=== PATIENT | female | born 1965 | race African-American/Black ===

== ENCOUNTER 2017-07-16 12:47 | Emergency (ER) | payer BC, OTHER ==
--- NOTE | 2017-07-16 14:57 | RAD ---
TWO VIEW CHEST: HISTORY: Chest pain, cough. COMPARISON: Comparison is made to a portable film of May 2015. FINDINGS: Heart size is mildly prominent but stable from prior exam. Stranding in the peripheral left lung als o to be a stable finding. There is no evidence of infiltrate or acute abnormality. IMPRESSION: No acute abnormality. POS: [facility]
== END 2017-07-16 14:13 | disposition home or self-care (01) ==
LOC: ERS 12:47
DX: J06.9 Acute upper respiratory infection, unspecified (principal); E11.9 Type 2 diabetes mellitus without complications; E78.5 Hyperlipidemia, unspecified; I10 Essential (primary) hypertension; Z79.4 Long term (current) use of insulin; Z79.899 Other long term (current) drug therapy
CPT/HCPCS: 36416; 71020; 94640; J7620

== ENCOUNTER 2017-08-14 20:19 | Emergency (ER) | payer SELFPAY ==
[2017-08-14] MEDS ORDERED: Ketorolac Tromethamine 30 MG/ML VIAL ONE (20:51)
[2017-08-14 21:08] LABS: #Eosinphils 0.1 thou/uL (0.0-0.7); #Lymphocytes 1.2 thou/uL (1.20-3.40); #Monocytes 0.3 thou/uL (0.11-0.59); #Neutrophils 7.3 thou/uL (1.40-6.50); %Basophils 0.4 % (0.0-1.0); %Eosinophils 0.8 % (0.0-10.0); %Lymphocytes 13.2 % (21.0-51.0); %Monocytes 3.7 % (0.0-10.0); %Neutrophils 81.8 % (42.0-75.0); Hemoglobin 13.4 g/dL (12.0-16.0); Mean Corpuscular HGB CONC 32.7 g/dL (32.0-36.0); Mean Corpuscular Hemoglobin 30.3 pg (27.0-31.0); Mean Corpuscular Volume 92.8 fl (81.0-99.0); Mean Platelet Volume 7.3 fL (7.4-10.4); Platelet Count 378 thou/uL (130-400); RBC Distribution Width 11.3 % (11.5-14.5); Red Blood Cell (RBC) Count 4.44 mill/uL (4.20-5.40); White Blood Cell (WBC) Count 8.9 thou/uL (4.8-10.8)
[2017-08-14 21:16] LABS: Bilirubin Negative (Negative); Blood, Urine Negative (Negative); Clarity CLEAR (Clear); Glucose, Urine (Dipstick) 250 mg/dL (Negative); Leukocyte Negative (Negative); Nitrite Negative (Negative); Protein, Urine (Dipstick) Trace mg/dL (Neg-Trace); Specific Gravity, Urine 1.029 (1.002-1.036)
--- NOTE | 2017-08-14 21:17 | RAD ---
CHEST TWO VIEWS: History: Cough. Comparison: 07-16-17 FINDINGS: Heart size is enlarged. Previously seen scarring in the lingula and right lower lobe. Numerous calcif ied bilateral hilar and right paratracheal lymph nodes. No acute osseous abnormality. IMPRESSION: 1. No acute abdomen or thoracic abnormality. 2. Scarring right middle lobe and lingula. 3. Bilateral and right paratracheal calcified lymph nodes. POS: [facility]
[2017-08-14 21:29] LABS: ALT (SGPT) 24 U/L (8-55); AST (SGOT) 18 U/L (5-34); Alkaline Phosphatase 89 U/L (40-150); Anion Gap 14 mmol/L (10-20); BUN (Urea Nitrogen) 12 mg/dL (9.8-20.1); Bilirubin, Total 0.4 mg/dL (0.2-1.2); Calc. Creatinine Clearance 0 mL/min (70-130); Calcium 9.3 mg/dL (7.8-10.44); Carbon Dioxide 25 mmol/L (22-29); Chloride 101 mmol/L (98-107); Estimated GFR-MDRD 81; Globulin 3.3 g/dL (2.4-3.5); Glucose 289 mg/dL (70-105); Lipase 35 U/L (8-78); Potassium 3.9 mmol/L (3.5-5.1); Protein, Total 7.3 g/dL (6.0-8.3); Sodium 136 mmol/L (136-145)
[2017-08-14] MEDS ORDERED: Ondansetron HCl/PF 4 MG/2 ML Vial ONE (22:06)
== END 2017-08-14 22:26 | disposition home or self-care (01) ==
LOC: ERS 20:19
DX: B34.9 Viral infection, unspecified (principal); D86.9 Sarcoidosis, unspecified; E11.9 Type 2 diabetes mellitus without complications; E78.5 Hyperlipidemia, unspecified; I10 Essential (primary) hypertension; Z79.4 Long term (current) use of insulin; Z79.899 Other long term (current) drug therapy
CPT/HCPCS: 36415; 71046; 80053; 81003; 83690; 85025; 93005; 94760; 96361; 96374; 96375; J1885; J2405

== ENCOUNTER 2017-12-04 21:35 | Observation (INO) | payer SELFPAY ==
[2017-12-04 22:01] LABS: Bilirubin Negative (Negative); Blood, Urine Negative (Negative); Clarity CLOUDY (Clear); Glucose, Urine (Dipstick) Negative (Negative); Leukocyte Negative (Negative); Nitrite Negative (Negative); Protein, Urine (Dipstick) Trace mg/dL (Neg-Trace); Urobilinogen 0.2 mg/dL (0.2-1.0)
[2017-12-04 22:02] LABS: #Basophils 0.1 thou/uL (0.0-0.2); #Eosinphils 0.2 thou/uL (0.0-0.7); #Lymphocytes 2.7 thou/uL (1.20-3.40); #Monocytes 0.4 thou/uL (0.11-0.59); #Neutrophils 4.4 thou/uL (1.40-6.50); %Basophils 0.8 % (0.0-1.0); %Eosinophils 2.3 % (0.0-10.0); %Lymphocytes 35.4 % (21.0-51.0); %Monocytes 4.9 % (0.0-10.0); %Neutrophils 56.7 % (42.0-75.0); Hemoglobin 12.9 g/dL (12.0-16.0); Mean Corpuscular HGB CONC 33.6 g/dL (32.0-36.0); Mean Corpuscular Hemoglobin 30.4 pg (27.0-31.0); Mean Corpuscular Volume 90.2 fl (81.0-99.0); Platelet Count 397 thou/uL (130-400); RBC Distribution Width 11.7 % (11.5-14.5); Red Blood Cell (RBC) Count 4.24 mill/uL (4.20-5.40); White Blood Cell (WBC) Count 7.7 thou/uL (4.8-10.8)
[2017-12-04] MEDS ORDERED: Nitroglycerin 2% Ointment 1 INCH/1 GM Packet ONE (22:12)
--- NOTE | 2017-12-04 22:18 | RAD ---
CHEST ONE VIEW PORTABLE: HISTORY: A 52-year-old female with a history of chest pain and heart racing. FINDINGS: Cardiomegaly. Bilateral stable appearing linear and parenchymal changes in the infrahilar regions. Old granulomatous disease. No confluent pneumonia, overt edema, or pleural effusion. IMPRESSION: Stable cardiomegaly, chronic linear parenchymal changes, and old granulomatous disease without overt acute process. Unchanged from 08/14/2017. POS: [facility]
[2017-12-04 22:24] LABS: ALT (SGPT) 19 U/L (8-55); AST (SGOT) 14 U/L (5-34); Albumin 4.2 g/dL (3.5-5.0); Alkaline Phosphatase 94 U/L (40-150); Anion Gap 13 mmol/L (10-20); BUN (Urea Nitrogen) 14 mg/dL (9.8-20.1); Bilirubin, Total 0.3 mg/dL (0.2-1.2); CK (CPK) 115 U/L (29-168); Calc. Creatinine Clearance 0 mL/min (70-130); Calcium 9.6 mg/dL (7.8-10.44); Carbon Dioxide 26 mmol/L (22-29); Chloride 103 mmol/L (98-107); Estimated GFR-MDRD 71; Globulin 3.3 g/dL (2.4-3.5); Glucose 174 mg/dL (70-105); Potassium 3.3 mmol/L (3.5-5.1); Protein, Total 7.5 g/dL (6.0-8.3); Sodium 139 mmol/L (136-145)
[2017-12-04 22:29] LABS: CKMB 0.6 ng/mL (0-6.6); Troponin I Less than 0.010 ng/mL (< 0.028)
[2017-12-05] MEDS ORDERED: HYDROcodone/Acetaminophen 10/325 mg Tablet ONE (00:16)
[2017-12-05] MEDS ORDERED: Bisacodyl 5 MG TAB PO PRN (00:18)
[2017-12-05] MEDS ORDERED: Ondansetron HCl/PF 4 MG/2 ML Vial IVP PRN (00:18)
[2017-12-05] MEDS ORDERED: Acetaminophen 325 MG TAB PO PRN (00:18)
[2017-12-05] MEDS ORDERED: Nitroglycerin 0.4 MG TAB (25 Tab Bottle) PO PRN (00:18)
[2017-12-05 00:59] LABS: Hemoglobin A1c 8.6 % (4.0-6.0)
[2017-12-05 01:13] LABS: Troponin I Less than 0.010 ng/mL (< 0.028)
[2017-12-05 01:48] VITALS: BMI 32.5
--- NOTE | 2017-12-05 02:33 | HP ---
CHIEF COMPLAINT: Chest pain and palpitations. HISTORY OF PRESENT ILLNESS: This is a 52-year-old female with a known history of sarcoidosis, pericardial effusion, who presents with a 2-week history of intermittent chest pain accompanied today by an episode of near syncope. The patient states that over the last 2 weeks, she has been also having sensations of palpitations, worse when she is lying down compared to when she is sitting up or standing. She also endorses weakness with exertion over the last month as well. Denies any recent acute illnesses or change in her medications. REVIEW OF SYSTEMS: As per HPI. Constitutional: The patient endorses approximately 15-pound weight loss unintentionally over the last 2 months without any overt fevers or chills. Patient reports a retained appetite and states that she is eating a lot. She feels that she is peeing more. She has also lost the weight as above without intention to lose the weight. HEENT: Denies any new headaches, vision changes, or dizziness. She describes a sensation of lightheadedness and almost passing out. Cardiovascular: The patient endorses a chest discomfort like a substernal chest pain. This is on top of occasionally feeling episodes of palpitations as described above. Respiratory: Denies any shortness of breath, cough, or difficulty breathing. Gastrointestinal: Denies any nausea, vomiting, abdominal pain, diarrhea, or constipation. States that she has had a "good appetite." Genitourinary: Denies any dysuria. Endorses increased urinary frequency and increased urinary volume. Denies any change in urine color or odor. Musculoskeletal: No new myalgias or arthralgias. The remainder of the review of systems otherwise negative. PAST MEDICAL HISTORY: As per above: 1. Sarcoidosis. 2. Pericardial effusion. 3. Type 2 diabetes. 4. Hyperlipidemia. 5. Hypertension. HOME MEDICATIONS: Please see the EMR for full details. Current regimen appears to include the followin. Clonidine 0.1 mg patch transdermally q.7 days. 2. Nifedipine 60 mg p.o. daily. 3. Losartan 50 mg p.o. daily. 4. Insulin Humalog mix 75/25, unspecified dose b.i.d. 5. Atorvastatin 20 mg p.o. at bedtime. 6. Atenolol 25 mg p.o. b.i.d. 7. Excedrin Migraine as needed. ALLERGIES: Include METOCLOPRAMIDE causes anxiety, PROMETHAZINE causes swollen lips, and HYDROCODONE BITARTRATE causes swelling. FAMILY HISTORY: Significant for colon cancer in her brother who is 52. Her father had a CHF and her mother had diabetes. She has multiple other family members with a history of coronary artery disease as well and diabetes. SOCIAL HISTORY: Patient denies any alcohol, tobacco, or illicit drug use. She is accompanied today by her significant other wishes to be FULL CODE at this point in time. PHYSICAL EXAMINATION: GENERAL: Patient is awake, alert, appropriate, in no acute distress, lying in the hospital bed, oriented x3, provides a reasonable history as described above. HEENT: Equal ocular motions are intact. Moist mucous membranes. Normocephalic , atraumatic. CARDIOVASCULAR: S1, S2. No murmurs, rubs, or gallops. Pulses 2+ bilateral upper extremities, no pitting pedal edema. RESPIRATORY: reasonable air movement. No conversational dyspnea. No wheezes, rales, or rhonchi. ABDOMEN: Positive bowel sounds, soft, nontender to palpation. MUSCULOSKELETAL: Moving all 4 extremities independently, able to reposition in the bed without difficulty or assistance. LABORATORY DATA AND IMAGING: WBC 7.7, hemoglobin 12.9, hematocrit 38.2, platelets 397. Sodium 139, potassium 3.3, chloride 103, bicarbonate 26, BUN 14 , creatinine 0.99, glucose 174. Hemoglobin A1c 8.6, calcium 9.6, total bilirubin 0.3, AST 14, ALT 19, alkaline phosphatase 94. Creatine kinase , initial troponin less than 0.01. BNP natriuretic peptide less than 10. Total protein 7.5, albumin 4.2. UA is bland. ASSESSMENT AND PLAN: This is a 52-year-old female who presents with a chief complaint of palpitations and near syncopal episode. 1. Concern for cardiac etiology given the patient's known history of pericardial effusion. We will maintain the patient on telemetry, check orthostatic vital signs and repeat an echocardiogram on the patient. 2. Increase urinary output - unclear etiology. ? related to poor glucose control. monitor UOP 3. Unexplained weight loss. This is most concerning for the patient given her known risk factors with recommend standard outpatient oncologic screening to consider initiation of a routine screening colonoscopy as she has a first- degree relative with colon cancer at the age of 52. 4. Diet: Cardiac diabetic. 5. Activity: As tolerated. 6. Deep vein thrombosis prophylaxis with enoxaparin. Admit the patient to observation status FULL CODE to telemetry. MTDD
[2017-12-05] MEDS: Nitroglycerin 2% Ointment 1 INCH/1 GM Packet TOP SCH ×3 (04:12→21:46)
[2017-12-05 04:59] LABS: #Eosinphils 0.3 thou/uL (0.0-0.7); #Lymphocytes 2.3 thou/uL (1.20-3.40); #Monocytes 0.4 thou/uL (0.11-0.59); #Neutrophils 4.5 thou/uL (1.40-6.50); %Basophils 0.6 % (0.0-1.0); %Eosinophils 3.4 % (0.0-10.0); %Lymphocytes 30.9 % (21.0-51.0); %Neutrophils 60.1 % (42.0-75.0); Hemoglobin 11.8 g/dL (12.0-16.0); Mean Corpuscular HGB CONC 33.2 g/dL (32.0-36.0); Mean Corpuscular Hemoglobin 30.1 pg (27.0-31.0); Mean Corpuscular Volume 90.6 fl (81.0-99.0); Platelet Count 349 thou/uL (130-400); RBC Distribution Width 11.8 % (11.5-14.5); Red Blood Cell (RBC) Count 3.93 mill/uL (4.20-5.40); White Blood Cell (WBC) Count 7.5 thou/uL (4.8-10.8)
[2017-12-05 05:19] LABS: Anion Gap 13 mmol/L (10-20); BUN (Urea Nitrogen) 11 mg/dL (9.8-20.1); Calc. Creatinine Clearance 118 mL/min (70-130); Calcium 8.8 mg/dL (7.8-10.44); Carbon Dioxide 25 mmol/L (22-29); Cardiac Risk 3.1 (Less than 4.5); Chloride 105 mmol/L (98-107); Cholesterol 189 mg/dl (< 200 Desired); Estimated GFR-MDRD Greater than 90; Glucose 221 mg/dL (70-105); HDL Cholesterol 61 mg/dL (>60 Neg Risk); LDL Cholesterol, Calculated 110 mg/dL; Potassium 3.6 mmol/L (3.5-5.1); Sodium 139 mmol/L (136-145); Triglycerides 91 mg/dL (Less than 150)
[2017-12-05 05:22] LABS: Troponin I Less than 0.010 ng/mL (< 0.028)
[2017-12-05] MEDS: Aspirin 325 MG TAB PO SCH (11:06)
[2017-12-05] MEDS: Enoxaparin Sodium 40 MG/0.4 ML SYRINGE SC SCH (11:06)
[2017-12-05] MEDS: Famotidine 40 MG/4 ML VIAL SLOW IVP SCH ×2 (11:38→21:47)
[2017-12-05] MEDS: Docusate 100 MG CAP PO SCH ×2 (11:38→21:46)
--- NOTE | 2017-12-05 13:34 | PDOC.PN ---
- Subjective Encounter Start Date: 12/05/17 Encounter Start Time: 07:57 -: old records requested/rev Pt seen and examined, chart reviewed in its entirety, this is my first visit with this patient Pt beign followe dup for chest pain, sarcoid and known pericardial affusion CP continues sharp and stapping, pleuritic in nature. Echo done, stress held at request of cardiology. Dr ayon thinks its pericardial and wants to try NSAIDS first and if not better, will defer decision to stress to dr Liriano, who will see tomorrow no other complaints or events overnight 10 point rOS performed and neg for all systems except as per HPI - Objective MAR Reviewed: Yes Vital Signs & Weight: Vital Signs (12 hours) Temp Pulse Resp BP BP BP BP 12/05/17 11:10 97.3 F L 76 16 149/92 H 12/05/17 07:55 98.0 F 91 16 12/05/17 07:49 91 135/74 129/78 12/05/17 07:22 98.0 F 83 16 151/87 H 12/05/17 03:50 97.7 F 85 16 133/76 12/05/17 03:04 BP Pulse Ox 12/05/17 11:10 96 12/05/17 07:55 12/05/17 07:49 136/82 12/05/17 07:22 98 12/05/17 03:50 99 12/05/17 03:04 97 Weight Weight 195 lb 9.6 oz I&O: 12/04/17 12/05/17 12/06/17 06:59 06:59 06:59 Intake Total 600 Output Total 200 350 Balance 400 -350 Result Diagrams: 12/05/17 04:27 12/05/17 04:27 Additional Labs: Accuchecks 12/05/17 10:53 POC Glucose 164 H Radiology Reviewed by me: Yes EKG Reviewed by me: Yes Phys Exam - Physical Examination Constitutional: NAD HEENT: PERRLA, moist MMs, sclera anicteric, oral pharynx no lesions Neck: no nodes, no JVD, supple, full ROM Respiratory: no wheezing, no rales, no rhonchi, clear to auscultation bilateral Cardiovascular: RRR, no significant murmur, no rub Heart tones distant Gastrointestinal: soft, non-tender, no distention, positive bowel sounds Musculoskeletal: pulses present, edema present Neurological: non-focal, normal sensation, moves all 4 limbs Lymphatic: no nodes Psychiatric: normal affect, A&O x 3 Skin: no rash, normal turgor, cap refill <2 seconds Dx/Plan (1) Chest pain Code(s): R07.9 - CHEST PAIN, UNSPECIFIED Status: Acute Qualifiers: Chest pain type: chest pain on breathing Qualified Code(s): R07.1 - Chest pain on breathing; R07.81 - Pleurodynia Comment: acute on chronic (2) DM2 (diabetes mellitus, type 2) Status: Chronic Qualifiers: Diabetes mellitus mcfp insulin use: unspecified operations general agent insulin use status Diabetes mellitus complication status: without complication Qualified Code(s): E11.9 - Type 2 diabetes mellitus without complications (3) HTN (hypertension) Code(s): I10 - ESSENTIAL (PRIMARY) HYPERTENSION Status: Chronic Qualifiers: Hypertension type: essential hypertension Qualified Code(s): I10 - Essential (primary) hypertension Comment: uncontrolled (4) Pericardial effusion Code(s): I31.3 - PERICARDIAL EFFUSION (NONINFLAMMATORY) Status: Chronic Comment: moderate, concentric, about the same. cardiology to start NSAIDS (5) Sarcoidosis Code(s): D86.9 - SARCOIDOSIS, UNSPECIFIED Status: Chronic - Plan cont current plan of care, respiratory therapy, out of bed/ambulate, DVT proph w /SCDs * .
--- NOTE | 2017-12-05 13:39 | CON ---
DATE OF CONSULTATION: 12/05/2017 REASON FOR CONSULTATION: Atypical chest pain, palpitations and pericardial effusion. Please see full note by Dr. Elam, which has been reviewed. HISTORY OF PRESENT ILLNESS: Briefly, Ms. Raya presented with palpitations. She did complain of ch est pain that lasted for several minutes. Her chest pain was described as sharp, worse with lying do wn, better with sitting up. Her palpitations also were noted with lying down. She underwent an echo that did suggest a moderate to large size pericardial effusion. When compared to previous echo in 2016, this actually appeared better. Her LVEF though appears to be at the lower limits of normal and appears worse than her previous echo in 2016. From a cardiac standpoint, her symptoms are felt to be atypical. She does have risk factors for unde rlying coronary artery disease. Recommend nonsteroidal therapy in addition to colchicine. I am conc erned about the chronic pericardial effusion, which may or may not be related to a history of sarcoid osis. I will evaluate her in the next 12-24 hours. May consider a noninvasive stress study. The pa tient to be evaluated by Dr. Samson Liang, her primary housekeeper hospital in a.m.
--- NOTE | 2017-12-05 13:55 | CON-2 ---
DATE OF CONSULTATION: 12/05/2017 CHIEF COMPLAINT: Chest pain/palpitations. HISTORY OF PRESENT ILLNESS: Ms. Raya is a 52-year-old -[place] female with diabetes type 2, hypertension, hyperlipidemia, and sarcoidosis. She describes chest pain with palpitations that have worsened over the past 2-3 weeks. Pain is sharp in nature and substernal, worse with lying down. Palpitations occur randomly and are also worse with lying down. She has associated weakness upon exertion over the past several months and also complains of a hoarse voice that is intermittently worse over the past several months. Yesterday, she describes a near syncopal episode in which 911 was called. She does admit to having these near syncopal episodes once every 2-3 months over the last 6-12 months. She does have a history of pericardial effusion diagnosed on echo in 2013. She has been noncompliant with follow up with Dr. Liang, Cardiology and Dr. Fernando, Pulmonology for this as well as her sarcoidosis treatment. She is currently lying in bed without complaints. PHYSICAL EXAMINATION: VITAL SIGNS: Blood pressure 149/92, temperature 97.3, pulse 76, respirations 16 , O2 sat 96%. GENERAL: No acute distress. CARDIOVASCULAR: Regular rate and rhythm, no murmurs, rubs or gallops, pulses present. LUNGS: CTA, no wheezing, rhonchi, or crackles noted. EXTREMITIES: No edema. Cap refill less than 2 seconds. Pulses present. SKIN: No rash, no acute changes. NEUROLOGIC: Patient is alert and oriented x3. No focal weakness. ASSESSMENT AND PLAN: 1. Chest pain R/O. We will plan to hold on stress test for now and have the patient be reevaluated tomorrow morning with Dr. Liang. 2. Pericardial effusion. The patient does have a history of pericardial effusion likely due to her sarcoidosis. We will order NSAIDs and continue to manage conservatively. We will also recommend the patient to see Dr. Fernando for her sarcoidosis. 3. Hypertension. Resume home medications. 4. Hyperlipidemia. Resume home medications, statin. 5. Diabetes. Continue home dose of insulin per primary team. 6. Sarcoidosis. Recommend patient to see Pulmonology. [facility]
[2017-12-05] MEDS: Ibuprofen 600 MG TAB PO SCH (16:42)
[2017-12-05] MEDS ORDERED: Dextrose 50% Abboject 50 ML SYRINGE IVP PRN (17:19)
[2017-12-05] MEDS ORDERED: Dextrose 5% in Water 1,000 ML IV PRN (17:19)
[2017-12-05] MEDS: HumaLOG 300 UNITS/3 ML VIAL SC PRN (17:25)
[2017-12-06] MEDS: Ibuprofen 600 MG TAB PO SCH ×2 (05:19→05:34)
[2017-12-06] MEDS: HumaLOG 300 UNITS/3 ML VIAL SC PRN (05:34)
[2017-12-06] MEDS: Nitroglycerin 2% Ointment 1 INCH/1 GM Packet TOP SCH (07:16)
[2017-12-06 07:58] VITALS: BP 148/85; TEMP 97.8
[2017-12-06] MEDS: Enoxaparin Sodium 40 MG/0.4 ML SYRINGE SC SCH (08:54)
[2017-12-06] MEDS: Aspirin 325 MG TAB PO SCH (08:54)
[2017-12-06] MEDS: Famotidine 40 MG/4 ML VIAL SLOW IVP SCH (08:54)
[2017-12-06] MEDS: Docusate 100 MG CAP PO SCH (08:54)
--- NOTE | 2017-12-06 11:06 | DIS ---
PRIMARY CARE PHYSICIAN: Dr. Agata Briones PRIMARY SOLUTIONS CONSULTANT: Dr. Samson Liang DATE OF ADMISSION: 12/05/2017 DATE OF DISCHARGE: 12/06/2017 DISCHARGE DIAGNOSES: 1. Pericardial chest pain. 2. Sarcoidosis. 3. Moderate pericardial effusion, chronic. 4. Diabetes mellitus type 2 without complication. 5. Essential hypertension. CONSULTATIONS: Cardiology, Dr. Johnathan Trinidad and Dr. Samson Liang. PROCEDURES: 1. A 2D echocardiogram 12/05/2017 that showed EF of 50-55%, mildly dilated LA, small RA size. Aneur ysmal interatrial septum. Normal LV size. Mild to moderate MR, mild TR and moderate circumferential pericardial effusion, stable from previous. HOSPITAL COURSE: Ms. Raya is a 52-year-old female who presented to the emergency de partment late on 12/04/2017 for evaluation of chest pain. It was worse with deep inspiration and mov ement. It seemed to be better when she sat up. Workup in the emergency department was unremarkable. She was placed on observation with serial cardi ac biomarkers. The patient was seen and examined by Dr. Aguirre. Serial cardiac biomarkers were obtained that were neg ative. A 2D echocardiogram was obtained that showed a moderate pericardial effusion that was stable from prior and cardiology consult was requested after Dr. Trinidad was concerned about having a stre ss test. He saw her and start her on ibuprofen which alleviated the pain. Dr. Liang took over for florin rogel today and wanted to do an outpatient PET stress test in the office and felt she was otherwise stab le for discharge. PHYSICAL EXAMINATION: The patient was seen and examined on the day of discharge. Discharge plan and disposition were discussed with the patient and her face to face at the bedside. DISCHARGE MEDICATIONS: 1. Aspirin daily. She says she takes 81 mg, it was not listed on her medicine chart. She has been on 325 mg here. Prescription sent for 325 mg tablets. 2. Albuterol sulfate 90 mcg inhaler 2-4 puffs q.6 hours p.r.n. 3. Excedrin Migraine one to two p.o. q.6 hours p.r.n. 4. Lipitor 20 mg p.o. at bedtime. 5. Ibuprofen 600 mg p.o. q.6 hours. Prescription for 120 tablets, 2 refills sent. 6. Levemir 40 units subcu at bedtime. 7. Nifedipine 60 mg p.o. daily. 8. Losartan 50 mg p.o. daily. 8. Humalog 75/25 30 units in the morning and 20 units in the evening. FOLLOWUP: 1. Primary care physician, Dr. Briones within a week. 2. Dr. Samson Liang in [address] Liang wants to get an outpatient PET stress test. ACTIVITY: Per cardiopulmonary limits. DISCHARGE CONDITION: Stable. DISPOSITION: Discharged home via private vehicle. DISCHARGE DIET: Diabetic, heart healthy diet recommended.
== END 2017-12-06 10:53 | disposition home or self-care (01) ==
LOC: ERS 21:35 → 2SW 12-05 01:24
PROVIDERS: ADMIT Internal Medicine; ATTEND Internal Medicine
DX: R07.89 Other chest pain (principal); D86.9 Sarcoidosis, unspecified; R00.2 Palpitations; E11.9 Type 2 diabetes mellitus without complications; I10 Essential (primary) hypertension; I31.3 Pericardial effusion (noninflammatory); E78.5 Hyperlipidemia, unspecified; Z79.4 Long term (current) use of insulin; Z79.899 Other long term (current) drug therapy; Z88.8 Allergy status to other drugs, medicaments and biological substances; Z88.5 Allergy status to narcotic agent
CPT/HCPCS: 36415; 36416; 71045; 80048; 80053; 80061; 81003; 82550; 82553; 83036; 83880; 84443; 84484; 85025; 93005; 93306; 94760; 96372; 96374; 96376; G0378; J1650

== ENCOUNTER 2018-07-20 21:29 | Observation (INO) | payer SELFPAY ==
--- NOTE | 2018-07-20 22:12 | RAD ---
PORTABLE CHEST 07/20/18 PROVIDED CLINICAL HISTORY: Chest pain. FINDINGS: Comparison 12/04/17. The cardiac silhouette appears enlarged. The lungs are hypoinflated. There are patchy predominantly l inear foci of parenchymal opacity involving the perihilar regions inferiorly bilaterally appearing si milar to the prior study. There is no evidence for pleural fluid or pneumothorax. IMPRESSION: No evidence for an acute cardiopulmonary process. POS: [facility]
[2018-07-20] MEDS ORDERED: methylPREDNISolone Sod Succ/PF 125 MG/2 ML VIAL ONE (22:27)
[2018-07-20] MEDS ORDERED: Nitroglycerin 0.4 MG TAB (25 Tab Bottle) ONE (22:27)
[2018-07-20] MEDS ORDERED: Magnesium 2 GM/50 ML BAG (IN WATER) ONE (22:27)
[2018-07-20 22:29] LABS: #Basophils 0.1 thou/uL (0.0-0.2); #Eosinphils 0.1 thou/uL (0.0-0.7); #Lymphocytes 2.7 thou/uL (1.20-3.40); #Monocytes 0.4 thou/uL (0.11-0.59); #Neutrophils 5.4 thou/uL (1.40-6.50); %Basophils 1.2 % (0.0-1.0); %Eosinophils 1.5 % (0.0-10.0); %Lymphocytes 30.5 % (21.0-51.0); %Monocytes 4.8 % (0.0-10.0); Mean Corpuscular HGB CONC 32.9 g/dL (32.0-36.0); Mean Corpuscular Hemoglobin 29.7 pg (27.0-31.0); Mean Corpuscular Volume 90.1 fL (78.0-98.0); Mean Platelet Volume 7.9 fL (7.4-10.4); Platelet Count 368 thou/uL (130-400); RBC Distribution Width 12.3 % (11.5-14.5); Red Blood Cell (RBC) Count 4.73 mill/uL (4.20-5.40); White Blood Cell (WBC) Count 8.8 thou/uL (4.8-10.8)
[2018-07-20] MEDS ORDERED: diphenhydrAMINE 50 MG/ML VIAL IVP SCH (22:30)
[2018-07-20 22:53] LABS: ALT (SGPT) 15 U/L (8-55); AST (SGOT) 16 U/L (5-34); Albumin 4.7 g/dL (3.5-5.0); Alkaline Phosphatase 84 U/L (40-150); Anion Gap 18 mmol/L (10-20); BUN (Urea Nitrogen) 18 mg/dL (9.8-20.1); Bilirubin, Total 0.6 mg/dL (0.2-1.2); CK (CPK) 104 U/L (29-168); Calc. Creatinine Clearance 0 mL/min (70-130); Carbon Dioxide 18 mmol/L (22-29); Chloride 108 mmol/L (98-107); Estimated GFR-MDRD 69; Globulin 3.5 g/dL (2.4-3.5); Glucose 129 mg/dL (70-105); Potassium 4.6 mmol/L (3.5-5.1); Protein, Total 8.2 g/dL (6.0-8.3); Sodium 139 mmol/L (136-145)
--- NOTE | 2018-07-20 23:03 | CT ---
CT BRAIN 07/20/18 PROVIDED CLINICAL HISTORY: Headache. FINDINGS: Comparison 11/13/16. The ventricular system appears normal in size and morphology. There is no evidence for intracranial h emorrhage or mass effect. The extracranial soft tissues and osseous structures demonstrate an unremar kable CT appearance. IMPRESSION: No evidence for intracranial hemorrhage or mass effect. POS: [facility]
[2018-07-21] MEDS ORDERED: Aspirin 325 MG TAB ONE (00:20)
[2018-07-21] MEDS ORDERED: Acetaminophen 325 MG TAB PO PRN (01:16)
[2018-07-21] MEDS ORDERED: Ondansetron PF 4 MG/2 ML Vial IVP PRN (01:16)
[2018-07-21] MEDS ORDERED: Ondansetron ODT 4 MG TAB SL PRN (01:16)
[2018-07-21 01:41] VITALS: BMI 31.9
[2018-07-21] MEDS ORDERED: NIFEdipine XL 60 MG TAB PO SCH ×2 (09:00→09:22)
[2018-07-21] MEDS ORDERED: Aspirin 325 MG TAB PO SCH (09:00)
[2018-07-21] MEDS ORDERED: Non-Formulary Item 1 EACH (Insulin Detemir 100 Units/Ml [Levemir] 40 UNIT) SQ PRN (09:21)
[2018-07-21] MEDS ORDERED: Insulin Glargine 40 UNITS in Pre-Filled Syringe 1 EACH SC PRN (09:51)
[2018-07-21 15:43] VITALS: BP 164/82; TEMP 98.6
[2018-07-21] MEDS ORDERED: Insulin NPH/Reg Insulin Hm 300 UNITS/3 ML VIAL SC SCH (16:30)
[2018-07-21] MEDS ORDERED: INSULIN LISPRO PROTAMINE SC SCH (16:30)
[2018-07-21] MEDS ORDERED: INSULIN LISPRO SC SCH (16:30)
[2018-07-21] MEDS ORDERED: Non-Formulary Item 1 EACH (Losartan Potassium [Cozaar] 50 MG) PO SCH (21:00)
[2018-07-21] MEDS ORDERED: Losartan 25 MG TAB PO SCH (21:00)
--- NOTE | 2018-07-21 23:31 | CON ---
DATE OF CONSULT: 07/21/18 Patient is a pleasant 53-year-old woman who presents with recurrent left sided chest discomfort. The patient was seen initially in October of 2013 with chest discomfort. She has a history of sarcoidosis. She was found to have a pericardial effusion. The patient was treated with nonsteroidal medication. The patient was admitted on several occasions with chest discomfort. She most recently underwent a stress test in November 2017 which revealed normal left ventricular ejection fraction at 52% with mild global hypokinesis and no evidence of ischemia. Patient was in her usual state of health when she had a migraine headache. She subsequently developed left sided chest pain that radiated down her left arm. The patient did not become short of breath. She came to the Emergency Room for further evaluation. The patient did report that she had been off her aspirin for a week for an outpatient surgical procedure. She restarted this two days ago. The patient received nitroglycerin in the Emergency Room and denies having any further discomfort. PAST MEDICAL HISTORY: 1. Hypertension. 2. Diabetes mellitus. 3. Pericardial effusion. 4. Sarcoidosis. 5. Chronic migraine headaches. PAST SURGICAL HISTORY: None. SOCIAL HISTORY: Nonsmoker. ALLERGIES: Reglan, hydrocodone, Promethazine. FAMILY HISTORY: Positive family history of heart disease. MEDICATIONS: On admission included Cozaar 50 q. day, Nifedipine 60 q. day, aspirin 325 q. day and Insulin. REVIEW OF SYSTEMS: Ten point system unremarkable except for migraine headaches. PHYSICAL EXAMINATION: GENERAL: This is a obese woman in no acute distress with a blood pressure of 133 /76. NECK: Showed no jugular venous distention. LUNGS: Clear to auscultation. HEART: Regular rate and rhythm. Normal S1 and S2. No murmurs. ABDOMEN: Nondistended. EXTREMITIES: Show no edema. VASCULAR: Radial pulses are 2+. LABORATORY RESULTS: White blood count 8.8, hemoglobin 14.0, hematocrit 42.6, platelets 368,000. Sodium 139, potassium 4.6, chloride 108, BUN 18, creatinine 1.0. EKG reveals her to have normal sinus tachycardia with voltage criteria for left ventricular hypertrophy. No acute ST-T wave abnormalities.. IMPRESSION: 1. Chest pain very suggestive of angina. 2. Hypertension. 3. Diabetes mellitus. 4. History of pericardial effusion. 5. Sarcoidosis. This patient presents with chest pain very suggestive of ischemic heart disease. I have highly recommend the patient proceed with cardiac catheterization to evaluate if she has significant coronary artery disease. Unfortunately, the patient declines to undergo this procedure. She is well aware of the life-threatening risk if she has significant coronary artery disease. The patient is on appropriate cardiac medications. We will add a low dose beta jane. The patient has been told to carry nitroglycerine with her at all times. If the patient would like to proceed during this hospitalization, I would be happy to perform an invasive evaluation. ANDRYD
[2018-07-22] MEDS ORDERED: Aspirin 325 mg Enteric Coated Tablet PO SCH (09:00)
[2018-07-22] MEDS ORDERED: NIFEdipine XL 60 MG TAB PO SCH (09:00)
--- NOTE | 2018-07-22 14:49 | SS ---
DATE OF ADMISSION: 07/20/2018 DATE OF DISCHARGE: 07/21/2018 PRIMARY CARE PHYSICIAN: Dr. Briones. CONSULTANTS: Dr. Liang, Cardiology. PROCEDURES: The patient had a brain CT, which showed no evidence of any intracranial hemorrhage or mass effect. Also, had a chest x-ray, which showed no evidence for acute cardiopulmonary process. HOSPITAL COURSE: The patient presented to the emergency room in the evening of 07/20/2018 for evaluation of chest pain. She reports that she was at the grocery store, and got very tired and experienced some chest pain, and felt like she was going to pass out. She reports that she had a headache for the past two days. Reports having a history of pericardial effusion and is being followed by Dr. Liang. She also has a past medical history that includes sarcoidosis, pericardial effusion since 2013, diabetes type 2, hyperlipidemia, high cholesterol, hypertension. The patient had an EKG in the ER, which showed sinus tachycardia, beats per minute 103, premature atrial complexes, axis is right, possible left atrial enlargement, left ventricular hypertrophy. Based on presentation, symptoms, and history, the patient was admitted to the Observation Unit. Dr. Liang, her implant coordinator was consulted. He went to see her this morning, suggested they do a cardiac cath and she refused. He added some Lopressor to her regimen and stated that she could go home if she was pain free, and her vital signs remained stable. Vital signs remain unchanged. The patient is in no distress. Denies any chest pain while she has been on the Observation Unit and is requesting to go home, so the patient will be discharged home. DISCHARGE DIAGNOSES: 1. Unstable angina. 2. Hypertension. 3. Diabetes. 4. Hyperlipidemia. 5. Sarcoidosis. 6. Pericardial effusion. PAST SURGICAL HISTORY: She reports that she has had a lymph node removed in her neck. PSYCHIATRIC HISTORY: None. SOCIAL HISTORY: Denies alcohol or drug abuse. Denies any smoking history. Lives at home with her family. ALLERGIES: THE PATIENT IS ALLERGIC TO PHENERGAN AND REGLAN. MEDICATIONS: Home medications, 1. Albuterol ProAir 2 to 4 puffs as needed q.i.d. 2. Levemir 40 units subcu at bedtime. 3. Humalog Mix 30 units subcu b.i.d. 4. Cozaar 50 mg p.o. at bedtime. 5. Aspirin 325 mg p.o. daily. 6. Toprol-XL 25 mg p.o. daily. 7. Procardia 60 mg p.o. daily. 8. Nitroglycerin 0.4 mg sublingual q.5 minutes as needed for chest pain. Of note, the Toprol-XL was added on this admission. REVIEW OF SYSTEMS: The patient is currently denying any chest pain, shortness of breath, headache, nausea, vomiting, shortness of breath. All other systems were reviewed and negative unless mentioned in the HPI. PHYSICAL EXAMINATION: VITAL SIGNS: Temperature is 98.4, pulse is 82, respirations 14, pulse ox is 98% on room air. Blood pressure 133/77. CONSTITUTIONAL: The patient is in no distress. The patient is alert and oriented to person, place, and time. He is nontoxic appearing. HEENT: Head is atraumatic, normocephalic. Eyes, pupils are equal, round, and reactive to light. Extraocular muscles are intact. ENT, mouth exam is normal. Mucous membranes are moist. NECK: Normal range of motion. Trachea is midline. RESPIRATORY: Chest, no respiratory distress. Breath sounds are clear. CARDIOVASCULAR: Regular heart rate and rhythm. No abnormal heart sounds are noted. ABDOMEN: Soft, nontender. Bowel sounds are heard. BACK: Normal range of motion. EXTREMITIES: Upper extremities, normal range of motion. Motor strength is normal. Radial pulses are equal bilaterally. Lower extremity, normal range of motion. Motor strength is normal. Pedal pulses are noted bilaterally. No edema is noted bilaterally. NEURO: The patient is alert and oriented x3. No focal, motor, or sensory deficit noted. Speech is normal. SKIN: Dry and warm. Normal in color. PSYCH: Normal affect. LABORATORY DATA: Pertinent labs, white blood cell count is 8.8, hemoglobin 14, hematocrit is 42.6, platelet count is 368. Sodium is 139, potassium 4.6, chloride 108, gap is 18, BUN is 18, creatinine is 0.01, estimated GFR 69, glucose is 129, calcium 10. Liver enzymes are unremarkable. Troponin x3 are undetectable. DISCHARGE CONDITION: Stable. The patient will be discharged to home. REFERRALS: 1. Should follow with Dr. Briones within the next week. 2. Follow up with Dr. Liang in the next 2 to 3 weeks. Job ID: [id number]
== END 2018-07-21 16:27 | disposition home or self-care (01) ==
LOC: ERS 21:29 → 2SW 23:45
PROVIDERS: ADMIT Internal Medicine; ATTEND Internal Medicine
DX: R07.9 Chest pain, unspecified (principal); I10 Essential (primary) hypertension; I31.3 Pericardial effusion (noninflammatory); E11.9 Type 2 diabetes mellitus without complications; I20.0 Unstable angina; D86.9 Sarcoidosis, unspecified; E78.00 Pure hypercholesterolemia, unspecified; G43.909 Migraine, unspecified, not intractable, without status migrainosus; Z88.8 Allergy status to other drugs, medicaments and biological substances; Z88.5 Allergy status to narcotic agent; Z79.4 Long term (current) use of insulin; Z79.82 Long term (current) use of aspirin; Z79.899 Other long term (current) drug therapy; Z98.890 Other specified postprocedural states
CPT/HCPCS: 36415; 36416; 70450; 71045; 80053; 82550; 84484; 85025; 93005; 96360; 96361; G0378; J1200; J2930

== ENCOUNTER 2019-05-08 15:30 | Emergency (ER) | payer SELFPAY ==
[2019-05-08 17:00] LABS: Bilirubin Negative (Negative); Blood, Urine Negative (Negative); Clarity Clear (Clear); Glucose, Urine (Dipstick) Greater than 1000 mg/dL (Negative); Leukocyte Negative Leu/uL (Negative); Nitrite Negative (Negative); Protein, Urine (Dipstick) Negative (Neg-Trace); Urobilinogen Normal mg/dL (Less than 2)
--- NOTE | 2019-05-08 17:01 | RAD ---
PORTABLE CHEST ONE VIEW: 05/08/19 at 4:34 p.m. HISTORY: Dizziness. FINDINGS: Comparison made with exam of 07/20/18. The heart is enlarged. No lobar consolidation, pneumothoraces, mango pulmonary edema or pleural effus ions are seen. There is evidence of old granulomatous disease. IMPRESSION: No acute process. POS: OFF
[2019-05-08 17:04] LABS: #Eosinphils 0.2 thou/uL (0.0-0.7); #Lymphocytes 2.1 thou/uL (1.20-3.40); #Monocytes 0.3 thou/uL (0.11-0.59); #Neutrophils 5.8 thou/uL (1.40-6.50); %Basophils 0.4 % (0.0-1.0); %Eosinophils 2.4 % (0.0-10.0); %Lymphocytes 24.9 % (21.0-51.0); %Monocytes 3.5 % (0.0-10.0); %Neutrophils 68.8 % (42.0-75.0); Hemoglobin 12.9 g/dL (12.0-16.0); Mean Corpuscular HGB CONC 33.5 g/dL (32.0-36.0); Mean Corpuscular Hemoglobin 30.4 pg (27.0-31.0); Mean Corpuscular Volume 90.8 fL (78.0-98.0); Mean Platelet Volume 7.5 fL (7.4-10.4); Platelet Count 351 thou/uL (130-400); RBC Distribution Width 11.9 % (11.5-14.5); Red Blood Cell (RBC) Count 4.25 mill/uL (4.20-5.40); White Blood Cell (WBC) Count 8.4 thou/uL (4.8-10.8)
[2019-05-08 17:35] LABS: ALT (SGPT) 20 U/L (8-55); AST (SGOT) 15 U/L (5-34); Albumin 4.2 g/dL (3.5-5.0); Alkaline Phosphatase 95 U/L (40-110); Anion Gap 15 mmol/L (10-20); BUN (Urea Nitrogen) 12 mg/dL (9.8-20.1); Bilirubin, Total 0.4 mg/dL (0.2-1.2); Calc. Creatinine Clearance 0 mL/min (70-130); Calcium 9.1 mg/dL (7.8-10.44); Carbon Dioxide 22 mmol/L (22-29); Chloride 103 mmol/L (98-107); Estimated GFR-MDRD 68; Globulin 3.1 g/dL (2.4-3.5); Glucose 287 mg/dL (70-105); Potassium 4.2 mmol/L (3.5-5.1); Protein, Total 7.3 g/dL (6.0-8.3); Sodium 136 mmol/L (136-145)
--- NOTE | 2019-05-08 18:01 | ULT ---
US Venous Doppler Rt Unilat History: Lower extremity edema and pain Comparison: Ultrasound 2010 Findings: Real-time grayscale, color, and spectral analysis of the right lower extremity venous syste m was performed. The common femoral, femoral, proximal portions greater saphenous and deep femoral veins as well as the popliteal and posterior tibial veins were interrogated. Normal flow, augmentation, and compression. Impression: No deep venous thrombosis.
== END 2019-05-08 18:32 | disposition home or self-care (01) ==
LOC: ERS 15:30
DX: R42 Dizziness and giddiness (principal); E11.9 Type 2 diabetes mellitus without complications; E78.5 Hyperlipidemia, unspecified; E78.00 Pure hypercholesterolemia, unspecified; I10 Essential (primary) hypertension; Z79.899 Other long term (current) drug therapy; Z79.51 Long term (current) use of inhaled steroids; Z79.4 Long term (current) use of insulin
CPT/HCPCS: 36415; 71045; 80053; 81003; 83880; 84484; 85025; 93005

== ENCOUNTER 2020-09-25 13:22 | Outpatient (CLI) | payer BC | END 2020-09-25 13:23 | disposition home or self-care (01) | LOC: BICMAMMO 13:22 | PROVIDERS: ATTEND Family Medicine | DX: Z12.31 Encounter for screening mammogram for malignant neoplasm of breast (principal) | CPT/HCPCS: 77063; 77067 ==

== ENCOUNTER 2021-11-19 09:21 | Emergency (ER) | payer BC, SELFPAY ==
[2021-11-19 10:12] LABS: #Eosinphils 0.2 thou/uL (0.0-0.7); #Lymphocytes 1.8 thou/uL (1.20-3.40); #Monocytes 0.3 thou/uL (0.11-0.59); #Neutrophils 3.1 thou/uL (1.40-6.50); %Basophils 0.6 % (0.0-1.0); %Lymphocytes 33.7 % (21.0-51.0); %Neutrophils 56.8 % (42.0-75.0); Hemoglobin 13.1 g/dL (12.0-16.0); Mean Corpuscular HGB CONC 33.2 g/dL (32.0-36.0); Mean Corpuscular Hemoglobin 29.9 pg (27.0-31.0); Mean Corpuscular Volume 90.1 fL (78.0-98.0); Mean Platelet Volume 7.4 fL (7.4-10.4); Platelet Count 351 thou/uL (130-400); RBC Distribution Width 11.3 % (11.5-14.5); Red Blood Cell (RBC) Count 4.38 mill/uL (4.20-5.40); White Blood Cell (WBC) Count 5.5 thou/uL (4.8-10.8)
[2021-11-19] MEDS ORDERED: Ketorolac Tromethamine 30 MG/ML VIAL ONE (10:19)
[2021-11-19] MEDS ORDERED: Ondansetron PF 4 MG/2 ML Vial ONE (10:19)
[2021-11-19] MEDS ORDERED: Morphine 4 MG/ML VIAL ONE (10:19)
[2021-11-19 10:27] LABS: ALT (SGPT) 12 U/L (8-55); AST (SGOT) 11 U/L (5-34); Alkaline Phosphatase 94 U/L (40-110); Anion Gap 13 mmol/L (10-20); BUN (Urea Nitrogen) 14 mg/dL (9.8-20.1); Bilirubin, Total 0.3 mg/dL (0.2-1.2); Calc. Creatinine Clearance 0 mL/min (70-130); Calcium 8.9 mg/dL (7.8-10.44); Carbon Dioxide 23 mmol/L (22-29); Chloride 105 mmol/L (98-107); Globulin 3.5 g/dL (2.4-3.5); Glucose 136 mg/dL (70-105); Potassium 4.3 mmol/L (3.5-5.1); Protein, Total 7.5 g/dL (6.0-8.3); Sodium 137 mmol/L (136-145)
== END 2021-11-19 12:05 | disposition home or self-care (01) ==
LOC: ERS 09:21
DX: M25.512 Pain in left shoulder (principal); M50.322 Other cervical disc degeneration at C5-C6 level; I10 Essential (primary) hypertension; E11.9 Type 2 diabetes mellitus without complications; E78.5 Hyperlipidemia, unspecified; E78.00 Pure hypercholesterolemia, unspecified; D86.9 Sarcoidosis, unspecified; Z79.4 Long term (current) use of insulin
CPT/HCPCS: 71045; 72125; 80053; 84484; 85025; 93005; 94760; 96374; J1885; J2270; J2405